=== PATIENT | female | born 1950 | race Caucasian/White ===

== ENCOUNTER → 2017-05-05 | Outpatient (REF) | payer BC | LOC: M LAB REF 20:04 | PROVIDERS: ATTEND Physician Assistant | DX: J02.9 Acute pharyngitis, unspecified (principal) ==

== ENCOUNTER 2018-04-30 15:15 | Emergency (ER) | payer OTHER, BC ==
[2018-04-30] MEDS: NAPROXEN 250 MG TAB PO (16:42)
== END 2018-04-30 17:53 | disposition home or self-care (01) ==
LOC: M ED 15:15
DX: S62.645A Nondisplaced fracture of proximal phalanx of left ring finger, initial encounter for closed fracture (principal); R93.7 Abnormal findings on diagnostic imaging of other parts of musculoskeletal system; V48.5XXA Car driver injured in noncollision transport accident in traffic accident, initial encounter; Y92.410 Unspecified street and highway as the place of occurrence of the external cause; J45.909 Unspecified asthma, uncomplicated; F32.9 Major depressive disorder, single episode, unspecified; K44.9 Diaphragmatic hernia without obstruction or gangrene; M48.00 Spinal stenosis, site unspecified
CPT/HCPCS: 73130

== ENCOUNTER → 2018-05-23 | Outpatient (CLI) | payer MEDICARE | LOC: M ADAMS 10:01 | DX: M25.561 Pain in right knee (principal) | CPT/HCPCS: 73564 ==

== ENCOUNTER → 2019-04-22 | Outpatient (CLI) | payer MEDICARE ==
[~2019-04-22] MED LIST: ACE65ERTAB PO; ASPI81TA26 PO; ATOR1TAB19 PO; BUPR150T3 PO; FEXO180T58 PO; FISH7.5C PO; FLON1SPR NARES; MULT1TAB10 PO; NORC1TAB7 PO; OMEP40CA2 PO; VITA200016 PO
--- NOTE | 2019-04-22 14:04 | REP ---
Clinical: Trauma. Technique: AP, lateral, bilateral oblique views of the right 3-5th toes. Findings: Degenerative changes and evidence to suggest old injury. A subtle acute nondisplaced fracture at the base of the fifth toe proximal phalanx cannot be excluded. Impression: 1. Degenerative changes and possible old injury involving the head of the fourth toe proximal phalanx. 2. Possible subtle acute nondisplaced fracture along the medial base fifth toe proximal phalanx. Electronically Signed by Gregg Mazariegos MD 04/22/2019 10:44 A
== END ==
LOC: M WUC 10:16
PROVIDERS: ATTEND Physician Assistant
DX: S90.121A Contusion of right lesser toe(s) without damage to nail, initial encounter (principal); W18.30XA Fall on same level, unspecified, initial encounter; Y92.009 Unspecified place in unspecified non-institutional (private) residence as the place of occurrence of the external cause

== ENCOUNTER → 2019-10-04 | Outpatient (CLI) | payer MEDICARE ==
[~2019-10-04] MED LIST changes: -OMEP40CA2 PO; +OMEP40CA97 PO
--- NOTE | 2019-10-04 10:54 | REP ---
Left foot: Four views. History: Pain. No comparison study. Findings: There is a prominent Achilles calcaneal spur and a smaller plantar calcaneal spur. On the lateral radiograph there is mild spurring at the talonavicular articulation. There is mild diffuse osteopenia. There is mild tendon insertion spurring on the proximal end of the fifth metatarsal. Impression: Mild spurring. No acute abnormality. Diffuse osteopenia. Electronically Signed by Jimbo Beavers MD 10/04/2019 10:46 A
--- NOTE | 2019-10-04 10:55 | REP ---
Left ankle series: Five views. History: Pain. Findings: Five views left ankle demonstrate an intact ankle mortise. There is Achilles and plantar calcaneal spurring and some mild midfoot spurring is seen. There is medial malleolar spurring and a tiny subcortical cyst is seen in the medial malleolus. No fractures seen. Mild lateral soft tissue swelling is seen. Impression: Spurring noted at the ankle, heel, and midfoot. No fractures seen. Mild anterolateral swelling. Electronically Signed by Jimbo Beavers MD 10/04/2019 10:47 A
== END ==
LOC: M ADAMS 09:54
PROVIDERS: ATTEND Physician Assistant
DX: M25.772 Osteophyte, left ankle (principal); M77.32 Calcaneal spur, left foot

== ENCOUNTER → 2019-12-20 | Outpatient (REF) | payer MEDICARE, BC | LOC: M LAB REF 09:29 | PROVIDERS: ATTEND Dermatology | DX: D22.39 Melanocytic nevi of other parts of face (principal) | CPT/HCPCS: 11102; 17000; 17003; 88305; G0463 ==

== ENCOUNTER → 2020-08-04 | Outpatient (CLI) | payer MEDICARE, BC ==
--- NOTE | 2020-08-04 15:46 | REP ---
INDICATION: PAIN IN RIGHT HIP COMPARISON: None. TECHNIQUE: AP and frog-lateral views of the right hip FINDINGS: Generalized age-related changes include subtle increased sclerosis to the acetabulum with minimal joint space narrowing. No further overt osteoarthritic or significant degenerative changes are appreciated. No evidence for acute or healed injury. Surrounding soft tissues are normal. IMPRESSION: Mild generalized age-related changes. <Electronically signed by Gregg Mazariegos > 08/04/20 [id number]
== END ==
LOC: M ADAMS 15:05
PROVIDERS: ATTEND Physician Assistant
DX: M25.551 Pain in right hip (principal)

== ENCOUNTER → 2021-11-24 | Outpatient (CLI) | payer MEDICARE, OTHER ==
[~2021-11-24] MED LIST changes: +BUPR150T12 PO; -BUPR150T3 PO; +OMEP40CA4 PO; -OMEP40CA97 PO
== END ==
LOC: M WHC 12:29
PROVIDERS: ATTEND Registered Nurse
DX: Z12.31 Encounter for screening mammogram for malignant neoplasm of breast (principal); Z13.820 Encounter for screening for osteoporosis; M85.89 Other specified disorders of bone density and structure, multiple sites

== ENCOUNTER → 2022-04-01 | Outpatient (CLI) | payer MEDICARE, OTHER ==
[~2022-04-01] MED LIST changes: +FEXO-117 PO; -FEXO180T58 PO
== END ==
LOC: M PLAIMG 12:43
PROVIDERS: ATTEND Registered Nurse
DX: R52 Pain, unspecified (principal); Z87.81 Personal history of (healed) traumatic fracture

== ENCOUNTER 2022-06-08 08:57 | Emergency (ER) | payer MEDICARE, OTHER ==
[~2022-06-08] VITALS: Ht 172.7 cm; Wt 84.1 kg
[~2022-06-08 08:57] MED LIST changes: +FISH10005 PO; -FISH7.5C PO
[2022-06-08] MEDS ORDERED: CARB25TA9 PO (09:08)
[2022-06-08] MEDS ORDERED: RIVA1.5C23 PO (09:08)
[2022-06-08] MEDS ORDERED: HYDR-3713 PO (11:01)
[2022-06-08] MEDS ORDERED: NORCO (11:01)
[2022-06-08] MEDS ORDERED: HOME MED LIST COMPLETE! XX SCH (11:05)
[2022-06-08 11:55] VITALS: BP 133/69
[2022-06-08] MEDS ORDERED: NIRMATRELVIR/RITONAVIR CO-PACK (EMERGENCY USE AUTH) PO SCH ×2 (12:00→21:00)
[2022-06-08 12:06] VITALS: O2SAT 97
== END 2022-06-08 12:13 | disposition home or self-care (01) ==
LOC: M ED 08:57
DX: U07.1 COVID-19 (principal); R05.9 Cough, unspecified; J02.9 Acute pharyngitis, unspecified; R52 Pain, unspecified; I10 Essential (primary) hypertension; J45.909 Unspecified asthma, uncomplicated; G20 Parkinson's disease; E78.5 Hyperlipidemia, unspecified; G47.33 Obstructive sleep apnea (adult) (pediatric); K21.9 Gastro-esophageal reflux disease without esophagitis; Z99.89 Dependence on other enabling machines and devices; Z88.5 Allergy status to narcotic agent; Z79.899 Other long term (current) drug therapy

== ENCOUNTER → 2023-01-26 | Outpatient (CLI) | payer MEDICARE, OTHER ==
[~2023-01-26] MED LIST changes: +CARB25TA9 PO; +HYDR-3713 PO; +NORCO; +RIVA1.5C23 PO
== END ==
LOC: M RAD 12-23 14:15
PROVIDERS: ATTEND Surgery Vascular Surgery
DX: I87.2 Venous insufficiency (chronic) (peripheral) (principal); I83.813 Varicose veins of bilateral lower extremities with pain

== ENCOUNTER → 2023-01-31 | Outpatient (REF) | payer MEDICARE, OTHER ==
[2023-01-31 17:23] LABS: TOTAL 25(OH) VITAMIN D 62.7 NG/ML (20.0-100.0)
== END ==
LOC: M LABDRWAD 15:57
DX: R41.89 Other symptoms and signs involving cognitive functions and awareness (principal); E55.9 Vitamin D deficiency, unspecified

== ENCOUNTER 2023-02-10 11:00 | Outpatient (RCR) | payer MEDICARE, OTHER | END 2023-02-13 | LOC: M PT 11:00 | PROVIDERS: ATTEND Surgery Vascular Surgery | DX: G20 Parkinson's disease (principal); R26.9 Unspecified abnormalities of gait and mobility ==

== ENCOUNTER 2023-03-10 11:45 | Outpatient (RCR) | payer MEDICARE, OTHER | END 2023-03-16 | LOC: M PT 11:45 | PROVIDERS: ATTEND Surgery Vascular Surgery | DX: G20 Parkinson's disease (principal); R26.9 Unspecified abnormalities of gait and mobility ==

== ENCOUNTER 2023-03-21 13:45 | Outpatient (RCR) | payer MEDICARE, OTHER | END 2023-04-15 | LOC: M PT 13:45 | PROVIDERS: ATTEND Surgery Vascular Surgery | DX: R41.89 Other symptoms and signs involving cognitive functions and awareness (principal); G20 Parkinson's disease ==

== ENCOUNTER → 2023-04-20 | Outpatient (CLI) | payer MEDICARE, OTHER ==
[2023-04-20 19:19] LABS: TOTAL 25(OH) VITAMIN D 66.3 NG/ML (20.0-100.0)
== END ==
LOC: M PLALAB 14:22
PROVIDERS: ATTEND Nurse Practitioner Family
DX: R41.89 Other symptoms and signs involving cognitive functions and awareness (principal); E55.9 Vitamin D deficiency, unspecified; Z79.899 Other long term (current) drug therapy

== ENCOUNTER → 2023-04-28 | Outpatient (CLI) | payer MEDICARE, OTHER | LOC: M RAD 08:10 | PROVIDERS: ATTEND Physician Assistant Surgical | DX: M16.11 Unilateral primary osteoarthritis, right hip (principal) ==

== ENCOUNTER 2023-05-21 11:01 | Observation (INO) | payer MEDICARE, OTHER ==
[~2023-05-21] VITALS: Ht 172.7 cm; Wt 78.1 kg
[2023-05-21] MEDS ORDERED: IBAN150T6 PO (11:19)
[2023-05-21] MEDS ORDERED: NS 500 ML IV ONE (12:20)
[2023-05-21 12:47] LABS: BASO % 0.6 % (0.0-1.0); EOS # 0.2 10^3/uL (0.0-0.5); EOS % 2.3 % (0.0-3.0); HEMATOCRIT 42.7 % (36.0-47.0); LYMPH # 1.6 10^3/uL (1.5-5.0); LYMPH % 24.4 % (24.0-44.0); MEAN CORPUSCULAR HEMOGLOBIN 31.3 pg (27.0-33.0); MEAN CORPUSCULAR HGB CONC 32.8 g/dl (32.0-36.5); MEAN CORPUSCULAR VOLUME 95.3 fl (80.0-96.0); MONO # 0.6 10^3/uL (0.0-0.8); MONO % 8.9 % (2.0-8.0); NEUTROPHILS # 4.1 10^3/uL (1.5-8.5); NEUTROPHILS % 63.6 % (36.0-66.0); PLATELET COUNT, AUTOMATED 237 10^3/uL (150-450); RED BLOOD COUNT 4.48 10^6/uL (4.00-5.40); WHITE BLOOD COUNT 6.4 10^3/uL (4.0-10.0)
[2023-05-21 12:51] LABS: INR 0.92; PROTHROMBIN TIME 12.6 SECONDS (12.5-14.5)
[2023-05-21 12:52] LABS: PARTIAL THROMBOPLASTIN TIME 26.2 SECONDS (24.8-34.2)
[2023-05-21 12:54] LABS: BLOOD UREA NITROGEN 26 MG/DL (9-23); CALCIUM LEVEL 8.9 MG/DL (8.3-10.6); CARBON DIOXIDE LEVEL 27 MMOL/L (20-31); CHLORIDE LEVEL 107 MMOL/L (98-107); CK-MB VALUE MASS < 1.0 NG/ML (<3.6); CPK CREATINE PHOSPHOKINASE 47 U/L (34-145); CREATININE FOR GFR 0.75 MG/DL (0.55-1.30); GLOMERULAR FILTRATION RATE > 60.0 (>39); GLUCOSE, FASTING 71 MG/DL (74-106); MAGNESIUM LEVEL 2.2 MG/DL (1.8-2.4); MB/CK RELATIVE INDEX 2.12 (< OR =4); POTASSIUM SERUM 3.9 MMOL/L (3.5-5.1); SODIUM LEVEL 141 MMOL/L (136-145)
[2023-05-21 12:57] LABS: FREE T4 1.28 NG/DL (0.89-1.76); THYROID STIMULATING HORMONE 0.543 uIU/ML (0.55-4.78)
[2023-05-21 13:17] LABS: RSV AMPLIFICATION NEGATIVE (NEGATIVE)
[2023-05-21] MEDS ORDERED: MED REC IN PROGRESS XX SCH (13:40)
[2023-05-21] MEDS ORDERED: ALPRAZolam 0.5 MG TAB PO ONE (14:00)
[2023-05-21 16:28] VITALS: BP 132/70; TEMP 97.2; O2SAT 99
[2023-05-21] MEDS ORDERED: RASA1TAB PO (16:44)
[2023-05-21] MEDS ORDERED: BUPR300T92 PO (16:44)
[2023-05-21] MEDS ORDERED: RIVA1CAP5 PO (16:44)
[2023-05-21] MEDS ORDERED: HOME MED LIST COMPLETE! XX SCH (16:45)
[2023-05-21] MEDS ORDERED: FLUTICASONE PROP 0.05% NASAL SPRAY 16 GM (FLONASE) NARES PRN (18:05)
[2023-05-21 20:11] VITALS: BP 107/66; TEMP 97; O2SAT 90
[2023-05-21 20:24] VITALS: BP 107/66; TEMP 97; O2SAT 90
[2023-05-21] MEDS ORDERED: PILL CUTTER 1 EACH XX ONE (20:44)
[2023-05-21] MEDS: SINEMET 25-100 MG TAB PO SCH (20:53)
[2023-05-21] MEDS: ENOXAPARIN 40MG/0.4ML SYRINGE (J1650 PER 10MG) SC SCH (20:54)
[2023-05-22] VITALS (7 sets, daily range): BP systolic 105–134; BP diastolic 55–83; TEMP 96.4–97.8; O2SAT 95–99
[2023-05-22 05:38] LABS: HEMATOCRIT 39.3 % (36.0-47.0); HEMOGLOBIN 12.8 g/dl (12.0-15.5); MEAN CORPUSCULAR HEMOGLOBIN 30.8 pg (27.0-33.0); MEAN CORPUSCULAR HGB CONC 32.6 g/dl (32.0-36.5); MEAN CORPUSCULAR VOLUME 94.7 fl (80.0-96.0); PLATELET COUNT, AUTOMATED 205 10^3/uL (150-450); RED BLOOD COUNT 4.15 10^6/uL (4.00-5.40); WHITE BLOOD COUNT 5.3 10^3/uL (4.0-10.0)
[2023-05-22 06:03] LABS: BLOOD UREA NITROGEN 27 MG/DL (9-23); CALCIUM LEVEL 8.2 MG/DL (8.3-10.6); CARBON DIOXIDE LEVEL 25 MMOL/L (20-31); CHLORIDE LEVEL 110 MMOL/L (98-107); CREATININE FOR GFR 0.62 MG/DL (0.55-1.30); GLOMERULAR FILTRATION RATE > 60.0 (>39); GLUCOSE, FASTING 96 MG/DL (74-106); SODIUM LEVEL 141 MMOL/L (136-145)
[2023-05-22] MEDS ORDERED: RASAGILINE 1 MG XX SCH (09:00)
[2023-05-22] MEDS ORDERED: RIVASTIGMINE 4.5 MG XX SCH (09:00)
[2023-05-22] MEDS ORDERED: PILL CUTTER 1 EACH XX ONE (09:09)
[2023-05-22] MEDS: ATORVASTATIN 10 MG TAB PO SCH (09:12)
[2023-05-22] MEDS: SINEMET 25-100 MG TAB PO SCH ×3 (09:12→20:00)
[2023-05-22] MEDS: OMEPRAZOLE 20MG CAP PO SCH (09:12)
[2023-05-22] MEDS: buPROPion **XL** TABLET 150MG (WELLBUTRIN XL) PO SCH (09:12)
[2023-05-22] MEDS: ENOXAPARIN 40MG/0.4ML SYRINGE (J1650 PER 10MG) SC SCH (20:00)
[2023-05-23] MEDS ORDERED: ACETAMINOPHEN TAB 650MG DOSE (2X325MG) PO PRN (01:10)
[2023-05-23 06:00] VITALS: BP 136/61; TEMP 97.2; O2SAT 95
[2023-05-23] MEDS: OMEPRAZOLE 20MG CAP PO SCH (08:10)
[2023-05-23] MEDS: buPROPion **XL** TABLET 150MG (WELLBUTRIN XL) PO SCH (08:10)
[2023-05-23] MEDS: SINEMET 25-100 MG TAB PO SCH (08:10)
[2023-05-23] MEDS: ATORVASTATIN 10 MG TAB PO SCH (08:10)
== END 2023-05-23 10:00 | disposition home or self-care (01) ==
LOC: M ED 11:46 → M ED INP 11:47 → M PCU 16:25 → M MS4PR 05-22 23:00
PROVIDERS: ADMIT Internal Medicine; ATTEND Internal Medicine
DX: R55 Syncope and collapse (principal); G25.2 Other specified forms of tremor; K21.9 Gastro-esophageal reflux disease without esophagitis; F32.A Depression, unspecified; J30.1 Allergic rhinitis due to pollen; M81.0 Age-related osteoporosis without current pathological fracture; M17.11 Unilateral primary osteoarthritis, right knee; G47.33 Obstructive sleep apnea (adult) (pediatric); Z96.651 Presence of right artificial knee joint; Z88.5 Allergy status to narcotic agent; Z79.899 Other long term (current) drug therapy
CPT/HCPCS: 36415; 70450; 70551; 71046; 72125; 80048; 82550; 82553; 83735; 84439; 84443; 84484; 85025; 85027; 85610; 85730; 87631; 93005; 93041; 93306; 94760; 96360; 96361; 96372; 97162; 99285; G0378; J1650

== ENCOUNTER → 2023-11-28 | Outpatient (CLI) | payer MEDICARE, OTHER ==
[~2023-11-28] MED LIST changes: +BUPR300T92 PO; +IBAN150T6 PO; +RASA1TAB PO; +RIVA1CAP5 PO
== END ==
LOC: M WHC 08:21
PROVIDERS: ATTEND Physician Assistant Medical
DX: Z13.820 Encounter for screening for osteoporosis (principal); Z12.31 Encounter for screening mammogram for malignant neoplasm of breast; M85.89 Other specified disorders of bone density and structure, multiple sites

== ENCOUNTER → 2024-06-28 | Outpatient (CLI) | payer MEDICARE, OTHER ==
[~2024-06-28] MED LIST changes: +BUPR-597 PO; -BUPR300T92 PO
== END ==
LOC: M SLEEP 20:00
PROVIDERS: ATTEND Nurse Practitioner Adult Health
DX: G47.30 Sleep apnea, unspecified (principal); R06.83 Snoring